=== PATIENT | female | born 1995 | race Caucasian/White ===

== ENCOUNTER 2017-03-28 15:44 | Emergency (ER) | payer OTHER ==
[~2017-03-28 15:44] MED LIST: DEPO-ESTRADIO5 MG/ML INJ; FLONASE ALLERG9.9 ML INH; NO MEDICATIONS; OMNICEF300 MG PO; PRENATAL VITAM1 EAC1; SUDAFED60 MG PO
== END 2017-03-28 16:34 | disposition home or self-care (01) ==
LOC: SED 15:44
DX: L03.113 Cellulitis of right upper limb (principal); F17.210 Nicotine dependence, cigarettes, uncomplicated; Z88.1 Allergy status to other antibiotic agents
CPT/HCPCS: 99282